=== PATIENT | male | born 1965 | race Caucasian/White ===

== ENCOUNTER 2018-06-25 09:14 | Day surgery (SDC) | payer OTHER ==
[~2018-06-25] VITALS: Ht 167.6 cm; Wt 104.3 kg
[2018-06-25] MEDS ORDERED: fentaNYL 0.05 MG/ML VIAL ONE (12:45)
[2018-06-25] MEDS ORDERED: MIDAZOLAM 2 MG/2 ML VIAL ONE (12:45)
[2018-06-25] MEDS ORDERED: MIDAZOLAM 2 MG/2 ML VIAL IVP ONE (13:25)
== END 2018-06-25 14:08 | disposition home or self-care (01) ==
LOC: MMU 09:14 → MDS 09:14
PROVIDERS: ATTEND Internal Medicine Gastroenterology
DX: K29.70 Gastritis, unspecified, without bleeding (principal); K29.80 Duodenitis without bleeding; I10 Essential (primary) hypertension; E78.5 Hyperlipidemia, unspecified; K21.9 Gastro-esophageal reflux disease without esophagitis; E66.9 Obesity, unspecified; Z68.37 Body mass index [BMI] 37.0-37.9, adult; Z86.010 Personal history of colon polyps
CPT/HCPCS: 36415; 43239; 82948; 86677; J2250; J3010